=== PATIENT | female | born 1995 | race Two or more races ===

== ENCOUNTER 2023-07-25 16:42 | Emergency (ER) | payer OTHER ==
[~2023-07-25] VITALS: Ht 157.5 cm; Wt 85.1 kg
[2023-07-25] MEDS ORDERED: SODIUM CHLORIDE 0.9% 500 ML IV ONE (17:15)
[2023-07-25 17:23] VITALS: PULSE 123; RESP 19; O2SAT 94
[2023-07-25 17:25] LABS: Alanine Aminotransferase 11 U/L (7-40); Albumin 3.1 g/dL (3.2-4.8); Alkaline Phosphatase 106 U/L (46-116); Anion Gap 6 (5-15); Aspartate Aminotransferase 26 U/L (13-40); BUN/Creatinine Ratio 12.9 (10.0-20.0); Blood Urea Nitrogen 8 mg/dL (9-23); Calcium 8.5 mg/dL (8.7-10.4); Carbon Dioxide 26 mmol/L (20-30); Chloride 108 mmol/L (98-107); Glucose 89 mg/dL (74-106); Potassium 4.2 mmol/L (3.5-5.1); Sodium 140 mmol/L (136-145)
[2023-07-25 17:26] LABS: Bilirubin, Total 0.2 mg/dL (0.2-1.0); Total Protein 5.2 g/dL (5.7-8.2)
[2023-07-25 17:31] LABS: Basophils # (auto) 0 10 ^3/uL (0-0.2); Basophils % (auto) 0.3 % (0.0-2.0); Eosinophils # (auto) 0.3 10 ^3/uL (0-0.8); Hematocrit 29.6 % (36.0-46.0); Hemoglobin 9.7 g/dL (12.2-16.2); Lymphocytes # (auto) 1.9 10 ^3/uL (0.4-5.4); Lymphocytes % (auto) 14.8 % (10.0-50.0); Mean Corpuscular Hemoglobin 30.6 pg (28.0-32.0); Mean Corpuscular Hgb Conc. 32.9 g/dL (32.0-36.0); Mean Corpuscular Volume 93.1 fL (80.0-100.0); Monocytes # (auto) 0.5 10 ^3/uL (0-1.3); Monocytes % (auto) 4.2 % (0.0-12.0); Neutrophils # (auto) 10.1 10 ^3/uL (1.6-8.6); Neutrophils % (auto) 78.7 % (37.0-80.0); Red Blood Cells 3.18 10^6/uL (4.0-5.20); White Blood Cell 12.9 10^3/uL (4.4-10.8)
[2023-07-25 17:45] LABS: INR 0.92 (0.9-1.15); Partial Thromboplastin Time 36.5 SEC (24.5-34.5); Prothrombin Time 9.7 sec (9.3-11.8)
[2023-07-25] MEDS ORDERED: PHYTONADIONE (VIT K)10 MG/ML 1ML VIAL SUBCUT ONE (18:00)
[2023-07-25] MEDS ORDERED: METHYLERGONOVINE MALEATE 0.2 MG/ML AMP IM STA (18:59)
[2023-07-25] MEDS ORDERED: NS/OXYTOCIN 20UNITS 1,000 ML IV SCH (19:00)
[2023-07-25 19:37] VITALS: PULSE 117; RESP 20; O2SAT 99
[2023-07-25] MEDS ORDERED: CARBOPROST TROMETHAMINE 250 MCG/1ML VIAL IM ONE ×2 (20:15→22:15)
[2023-07-25] MEDS ORDERED: NS/OXYTOCIN 20UNITS 1,000 ML IV ONE (20:30)
[2023-07-25] MEDS ORDERED: miSOPROStol 100 mcg TAB SL PRN (20:45)
[2023-07-25] MEDS ORDERED: miSOPROStol 100 mcg TAB PR PRN (20:45)
[2023-07-25] MEDS ORDERED: TRANEXAMIC ACID 1,000 MG in SODIUM CHL 0.9% 100 ML IV ONE (20:45)
[2023-07-25 21:11] LABS: Hematocrit 26.8 % (36.0-46.0)
[2023-07-25 21:42] LABS: INR 0.96 (0.9-1.15); Partial Thromboplastin Time 35.5 SEC (24.5-34.5); Prothrombin Time 10.1 sec (9.3-11.8)
[2023-07-25 21:50] VITALS: BP 126/76; PULSE 118; RESP 19; TEMP 98.6; O2SAT 98
== END 2023-07-25 22:00 | disposition short-term general hospital (02) ==
LOC: EDBD 16:42 → ER 16:42
DX: N93.9 Abnormal uterine and vaginal bleeding, unspecified (principal); D64.9 Anemia, unspecified; Z98.890 Other specified postprocedural states
CPT/HCPCS: 36415; 36430; 76856; 80053; 85014; 85018; 85025; 85384; 85610; 85730; 86850; 86900; 86901; 96360; 96372; 99291; J2210; J7040; P9016; P9017; 86922

== ENCOUNTER 2024-09-20 21:57 | Emergency (ER) | payer OTHER ==
[~2024-09-20] VITALS: Ht 157.5 cm; Wt 65.9 kg
[2024-09-20 22:33] LABS: Basophils # (auto) 0 10 ^3/uL (0-0.2); Basophils % (auto) 0.2 % (0.0-2.0); Eosinophils # (auto) 0.1 10 ^3/uL (0-0.8); Eosinophils % (auto) 0.5 % (0.0-7.0); Hemoglobin 9.9 g/dL (12.2-16.2); Lymphocytes # (auto) 1.7 10 ^3/uL (0.4-5.4); Lymphocytes % (auto) 11.1 % (10.0-50.0); Mean Corpuscular Hgb Conc. 34.3 g/dL (32.0-36.0); Mean Corpuscular Volume 93.4 fL (80.0-100.0); Monocytes # (auto) 0.6 10 ^3/uL (0-1.3); Monocytes % (auto) 4.3 % (0.0-12.0); Neutrophils # (auto) 12.7 10 ^3/uL (1.6-8.6); Neutrophils % (auto) 83.9 % (37.0-80.0); Platelet Count (auto) 185 10^3/uL (140-450); Red Cell Distribution Width 12.4 % (11.8-14.3); White Blood Cell 15.2 10^3/uL (4.4-10.8)
[2024-09-20 22:40] VITALS: PULSE 81; RESP 23; O2SAT 100
[2024-09-20] MEDS: SODIUM CHLORIDE 0.9% 1,000 ML IVB ONE (22:44)
[2024-09-20 22:50] LABS: Alanine Aminotransferase 19 U/L (7-40); Albumin 3.7 g/dL (3.2-4.8); Alkaline Phosphatase 59 U/L (46-116); Anion Gap 8 (5-15); Aspartate Aminotransferase 15 U/L (13-40); BUN/Creatinine Ratio 20.5 (10.0-20.0); Bilirubin, Total 0.2 mg/dL (0.2-1.0); Blood Urea Nitrogen 16 mg/dL (9-23); Calcium 9.2 mg/dL (8.7-10.4); Carbon Dioxide 25 mmol/L (20-31); Chloride 107 mmol/L (98-107); Glucose 146 mg/dL (74-106); Potassium 3.6 mmol/L (3.5-5.1); Sodium 140 mmol/L (136-145)
[2024-09-20 22:51] LABS: Total Protein 5.8 g/dL (5.7-8.2)
[2024-09-21] MEDS: SODIUM CHLORIDE 0.9% 1,000 ML IV ONE (00:21)
[2024-09-21 00:37] LABS: Hematocrit 23.7 % (36.0-46.0); Hemoglobin 7.9 g/dL (12.2-16.2)
--- NOTE | 2024-09-21 01:13 | DVH ---
OBSTETRIC ULTRASOUND PRIOR TO 14 WEEKS CLINICAL INDICATION: vag bleed TECHNIQUE: Multiple grayscale ultrasound images were obtained of the pelvis via transabdominal and tr ansvaginal approach for obstetric evaluation. Limited color Doppler and spectral Doppler acquisitions were also obtained. COMPARISON: None FINDINGS: Uterus: 11.8 x 4.5 x 5.0 cm. No intrauterine gestational sac . There is an intrauterine gestational s ac measuring 1.69 cm in the lower uterine segment. No pole or yolk sac is seen Heterogeneous, thickened endometrium with internal vascularity Right adnexa: right ovary 3.1 x 1.8 x 1.4 cm. Normal arterial blood flow in the ovary. No right adnex al mass seen. Left adnexa: left ovary is not visualized. No left adnexal mass seen. Other: None IMPRESSION: 1. Intrauterine gestational sac in the lower uterine segment. No yolk sac or pole. Question if this is an active miscarriage. Close follow-up ultrasound recommended if clinically indicated 2. Heterogeneous thickened endometrium with vascularity which could be related to blood products, pos sibly retained products of conception. This could also be evaluated on follow-up. 3. Normal right ovary. 4. Left ovary not visualized.
[2024-09-21] MEDS: miSOPROStol 50 MCG per PRE-CUT 1/2 TAB VG STA (01:24)
[2024-09-21 01:39] LABS: Urine Bacteria None Seen /hpf (None Seen)
[2024-09-21] MEDS: LACT. RINGERS/OXYTOCIN 20UNITS 1,000 ML IV ONE (01:47)
--- NOTE | 2024-09-21 01:52 | ED.PDOC ---
[employer] HPI Comments 30-year-old female complaining of vaginal bleeding with cramping which two weeks ago. 09/06. States it started off his initial small brown spotting. She followed up with her OBGYN one week ago. They stated they were going to do serial beta-hCGs. States it has been trending down. Initially was [id number] last one drawn three days ago was [id number]. She did have ultrasound done and was told that he was no pole no yolk sac. They did tell her no ectopic . Patient states today she had more significant blood clot pass in heavy bleeding. States she has been having mild cramping. Patient reports being . 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 Family History Family History: Reviewed,noncontributory to illness Social History Smoker: Non-Smoker Alcohol: Denies ETOH Use Drugs: Denies Drug Use Lives In: Home Constitutional: denies: chills, diaphoresis, fatigue, fever, malaise, sweats, weakness, others EENTM: denies: blurred vision, double vision, ear bleeding, ear discharge, ear drainage, ear pain, ear ringing, eye pain, eye redness, hearing loss, mouth pain, mouth swelling, nasal discharge, nose bleeding, nose congestion, nose pain, photophobia, tearing, throat pain, throat swelling, voice changes, others Respiratory: denies: cough, hemoptysis, orthopnea, SOB at rest, shortness of breath, SOB with excertion, stridor, wheezing, others Cardiovascular: denies: chest pain, dizzy spells, diaphoresis, Dyspnea on exertion, edema, irregular heart beat, left arm pain, lightheadedness, palpitations, PND, syncope, others Gastrointestinal: reports: abdominal pain; denies: abdomen distended, blood streaked bowels, constipated, diarrhea, dysphagia, difficulty swallowing, hematemesis, melena, nausea, poor appetite, poor fluid intake, rectal bleeding, rectal pain, vomiting, others Genitourinary: reports: abnormal vagina bleeding; denies: burning, dyspareunia, dysuria, flank pain, frequency, hematuria, incontinence, pain, , vagina discharge, urgency, others Neurological: denies: dizziness, fainting, headache, left sided numbness, left sided weakness, numbness, paresthesia, pre-existing deficit, right sided numbness, right sided weakness, seizure, speech problems, tingling, tremors, weakness, others Musculoskeletal: denies: back pain, gout, joint pain, joint swelling, muscle pain, muscle stiffness, neck pain, others Integumetry: denies: bruises, change in color, change in hair/nails, dryness, laceration, lesions, lumps, rash, wounds, others Allergic/Immunocompromised: denies: Difficulty Healing, Frequent Infections, Hives, Itching, others Hematologic/Lymphatic: denies: anemia, blood clots, easy bleeding, easy bruising, swollen glands, others Physical Exam General Appearance: Moderate Distress, Normal HEENT: Normal ENT Inspection, Pharynx Normal, TMs Normal Neck: Full Range of Motion, Non-Tender, Normal, Normal Inspection Respiratory: Chest Non-Tender, Lungs Clear, No Accessory Muscle Use, No Respiratory Distress, Normal Breath Sounds Cardiovascular: No Edema, No JVD, No Murmur, No Gallop, Normal Peripheral Pulses, Regular Rate/Rhythm Breast Exam: Deferred Gastrointestinal: No Organomegaly, Non Tender, No Pulsatile Mass, Normal Bowel Sounds, Soft Genitalia: Deferred Pelvic: Deferred Rectal: Deferred Extremities: No calf tenderness, Normal capillary refill, Normal inspection, Normal range of motion, Non-tender, No pedal edema Musculoskeletal : Apperance: Normal Neurologic: Alert, grinder watch parts II-XII nml as Tested, No Motor Deficits, Normal Affect, Normal Mood, No Sensory Deficits Cerebellar Function: Normal Reflexes: Normal Skin: Cyanosis, Diaphoresis, Warm Lymphatic: No Adenopathy Was a procedure done? 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) Vaginal Bleeding: - Complete, - Incomplete, - Inevitable, - Missed, - Threatened, Ectopic X-Ray, Labs, Meds, VS Vital Signs Date Time Temp Pulse Resp B/P (MAP) Pulse Ox O2 Delivery O2 Flow Rate FiO2 09/21/24 00:50 82 16 101/52 (68) 100 09/20/24 22:40 81 23 100 Room Air* 0 21 09/20/24 22:40 98.7 81 23 108/52 (70) 100 98.7 09/20/24 22:15 98.0 78 18 104/66 (79) 98 Lab Test 09/21/24 01:38 09/21/24 00:30 09/20/24 22:20 Range/Units Urine Color Pending Urine Clarity Pending Urine pH Pending Urine Specific [place] Pending Urine Protein Pending Urine Ketones Pending Urine Blood Pending Urine Nitrite Pending Urine Bilirubin Pending Urine Urobilinogen Pending Urine Leukocyte Esterase Pending Urine RBC Pending Urine WBC Pending Urine Squamous Epithelial Cells Pending Urine Bacteria Pending Urine Glucose Pending Hemoglobin 7.9 #L 9.9 L 12.2-16.2 g/dL Hematocrit 23.7 #L 29.0 L 36.0-46.0 % White Blood Count 15.2 H 4.4-10.8 10^3/uL Red Blood Count 3.10 L 4.0-5.20 10^6/uL Mean Corpuscular Volume 93.4 80.0-100.0 fL Mean Corpuscular Hemoglobin 32.0 28.0-32.0 pg Mean Corpuscular Hemoglobin Concent 34.3 32.0-36.0 g/dL Red Cell Distribution Width 12.4 11.8-14.3 % Platelet Count 185 140-450 10^3/uL Mean Platelet Volume 10.2 6.9-10.8 fL Neutrophils (%) (Auto) 83.9 H 37.0-80.0 % Lymphocytes (%) (Auto) 11.1 10.0-50.0 % Monocytes (%) (Auto) 4.3 0.0-12.0 % Eosinophils (%) (Auto) 0.5 0.0-7.0 % Basophils (%) (Auto) 0.2 0.0-2.0 % Neutrophils # (Auto) 12.7 H 1.6-8.6 10 ^3/uL Lymphocytes # (Auto) 1.7 0.4-5.4 10 ^3/uL Monocytes # (Auto) 0.6 0-1.3 10 ^3/uL Eosinophils # (Auto) 0.1 0-0.8 10 ^3/uL Basophils # (Auto) 0 0-0.2 10 ^3/uL Nucleated Red Blood Cells 0.0 % Prothrombin Time Pending Prothrombin Time INR Pending Sodium Level 140 136-145 mmol/L Potassium Level 3.6 3.5-5.1 mmol/L Chloride Level 107 98-107 mmol/L Carbon Dioxide Level 25 20-31 mmol/L Anion Gap 8 5-15 Blood Urea Nitrogen 16 9-23 mg/dL Creatinine 0.78 0.550-1.02 mg/dL Glomerular Filtration Rate Calc 106 >90 mL/min BUN/Creatinine Ratio 20.5 H 10.0-20.0 Serum Glucose 146 H 74-106 mg/dL Calcium Level 9.2 8.7-10.4 mg/dL Total Bilirubin 0.2 0.2-1.0 mg/dL Aspartate Amino Transferase (AST) 15 13-40 U/L Alanine Aminotransferase (ALT) 19 7-40 U/L Alkaline Phosphatase 59 46-116 U/L Total Protein 5.8 5.7-8.2 g/dL Albumin 3.7 3.2-4.8 g/dL Beta HCG, Quantitative 3599.2 H 1.5-4.2 mIU/mL Current Medications Medications (Trade) Dose Ordered Sig/Yamilka Route Start Time Stop Time Status Last Admin Sodium Chloride 1,000 ml @ 1,000 mls/hr Q1H ONCE IVB 09/20/24 22:15 09/20/24 23:14 DC 09/20/24 22:44 Sodium Chloride 1,000 ml @ 1,000 mls/hr Q1H ONCE IV 09/21/24 00:15 09/21/24 01:14 DC 09/21/24 00:21 X-Ray, Labs, Meds, VS Comment Spoke with doctor Destiney JONES on-call due to the shift and hemoglobin, Dr. Cabello recommends : Transfused 2 units emergency blood Cytotec 800 mcg vaginally LR plus 20 units oxytocin at the rate of 115 hour NPO Time of 1ST Reevaluation: 01:51 Reevaluation 1ST: Unchanged Patient Education/Counseling: Diagnosis, Treatment Family Education/Counseling: Diagnosis, Treatment Departure 1 Departure Time of Disposition: 01:49 Impression: Primary Impression: Severe anemia Additional Impressions: Incomplete miscarriage Retained products of conception Blood loss anemia Disposition: ADMITTED INPATIENT Condition: Unstable Critical Care Note Critical Care Time?: No Stability Stability form required: No Heart Score Heart Score: Heart Score Response (Comments) Value History N/A 0 EKG N/A 0 Age N/A 0 Risk Factors N/A 0 Troponin N/A 0 Total 0 NAYAN VERNON Sep 21, 2024 01:52
[2024-09-21 01:53] LABS: INR 1.05 (0.9-1.15); Prothrombin Time 11.1 sec (9.3-11.8)
[2024-09-21 02:13] LABS: Urine Blood 3+ /uL (Negative); Urine Clarity Ex.Turbid (Clear); Urine Color Light-Red (Yellow); Urine Protein, UAD 2+ (Negative); Urine Specific Gravity 1.013 (1.001-1.035); Urine Urobilinogen Normal (Negative); Urine WBC 41 /hpf (0 - 5); Urine pH 6.5 (5.0-9.0)
[2024-09-21] MEDS: miSOPROStol 100 mcg TAB ONE (02:35)
[2024-09-21] MEDS: HYDROcodone-ACET 5/325MG TAB PO ONE (03:50)
[2024-09-21] MEDS ORDERED: NITROGLYCERIN 0.4 MG SL TAB SL PRN (04:15)
[2024-09-21] MEDS ORDERED: ONDANSETRON HCL 4 MG/2 ML VIAL IV PRN (04:15)
[2024-09-21] MEDS ORDERED: MORPHINE SULFATE INJ 2 MG/ml SYRG IV PRN ×2 (04:15)
[2024-09-21] MEDS: cefTRIAXone 1GM/50ML D5W 50 ML IV ONE (06:20)
[2024-09-21 07:30] VITALS: PULSE 84; RESP 20; O2SAT 100
[2024-09-21 07:47] LABS: Hematocrit 37.6 % (36.0-46.0); Hemoglobin 12.9 g/dL (12.2-16.2)
[2024-09-21 08:00] VITALS: TEMP 98.6
--- NOTE | 2024-09-21 08:58 | DVHINCON2 ---
DATE OF CONSULTATION: 09/20/2024 REASON FOR CONSULTATION: Incomplete vaginal bleeding. HISTORY OF PRESENT ILLNESS: The patient is a 29-year-old 6, para 1-0-4-1, who presented to emergency room last on 09/20/2024 at 2200. According to Emergency Room Personnel, the patient was having heavy bleeding. Her beta hCG was 20,000, which went down to 3500 on presentation and her hemoglobin was 9.7, which went down to 7.7. I was consulted at 1:00 a.m. I immediately ordered a blood transfusion and according to the PA, the patient was not bleeding anymore. She had heavy bleeding and then stopped. Pitocin was started. Blood transfusion was given followed by concurrently with Pitocin IV and Cytotec 800 mcg per vagina for small retained POC noted. According to the patient, the patient was followed by [facility] for this conservatively; however, the patient has been bleeding heavy and her hemoglobin went down to 7 based on her heavy bleeding prior to presentation. I evaluated the patient. The patient's vital signs were completely normal. She was not tachycardic. Urine output was good. The patient was consulted regarding management. I offered dilatation and curettage. Also reviewed option of Cytotec and expectant management. The patient has had 3 miscarriages and is worried about undergoing D and C. Because of her history, she does not necessarily want to get exposed to surgery at the time of my evaluation. The patient was not bleeding at all. Did not have any complaints of abdominal pain and wanted to proceed with conservative management. Follow up beta hCG and ultrasound in 1 day. Risks, complication, alternative discussed with the patient. All questions answered. The patient's questions answered to her full understanding and satisfaction. PAST MEDICAL HISTORY: None. PAST SURGICAL HISTORY: Ectopic , D and C. SOCIAL HISTORY: None. FAMILY HISTORY: None. OBSTETRIC AND GYNECOLOGIC HISTORY: One normal vaginal delivery, 3 miscarriages, 1 ectopic . ALLERGIES: No known drug allergies. REVIEW OF SYSTEMS: Consistent with HPI. CONSTITUTIONAL: No fevers, chills, or fatigue. CARDIOVASCULAR: No palpitations or chest pain. RESPIRATORY: No shortness of breath or hemoptysis. GASTROINTESTINAL: No abdominal pain, constipation, or diarrhea. GENITOURINARY: No vaginal bleeding. Currently, scant spotting. No dysuria, no frequency. NEUROLOGICAL: No dizziness, incoordination. PSYCHIATRIC: No depression or anxiety. PHYSICAL EXAMINATION: VITAL SIGNS: Stable, afebrile. Blood pressure 110/70, pulse of 70. HEENT: Within normal limits. CARDIOVASCULAR: Regular rate and rhythm. LUNGS: Clear to auscultation. BREASTS: Symmetrical. No masses. ABDOMEN: Soft, nontender. PELVIC: External genitalia within normal limits. No active bleeding noted. Vagina normal cervix closed. Uterus 8 weeks' size. Adnexa nonpalpable. No blood on the glove noted. EXTREMITIES: No clubbing, cyanosis, or edema. IMPRESSION: * Status post spontaneous AB. * Anemia, received blood transfusion. RECOMMENDATION: The patient was fully informed of risks, complication. The patient was offered D and C. She wants to have expectant management. I spoke to Dr. Wyman, the ER physician and explained to him the course of treatment. I also informed him that I was on the phone with Emergency Room from 1:00 a.m. to 5:00 a.m., managing this patient. The patient is completely stable. I have offered her D and C, but the patient refuse it. Dr. Wyman wants the patient to follow up with [place] today. He even spoke to the patient regarding transfer, but the patient appears to be very compliant and wants to drive herself to [place]. Thank you very much for this consultation. DO MAURA Wheeler TID: [id number] RECEIPT: [id number]
[2024-09-21] MEDS ORDERED: cefTRIAXone 1GM/50ML D5W 50 ML IV SCH (09:00)
[2024-09-21 09:04] VITALS: BP 119/62; PULSE 78; RESP 17; O2SAT 100
== END 2024-09-21 09:14 | disposition home or self-care (01) ==
LOC: EDUNIT# 21:57 → ER 21:57 → EDBD 21:57 → ER 09-21 09:14
DX: O03.4 Incomplete spontaneous abortion without complication (principal); R10.2 Pelvic and perineal pain; O26.891 Other specified pregnancy related conditions, first trimester; D50.0 Iron deficiency anemia secondary to blood loss (chronic); O72.2 Delayed and secondary postpartum hemorrhage; Z3A.00 Weeks of gestation of pregnancy not specified; Z88.1 Allergy status to other antibiotic agents; Z98.890 Other specified postprocedural states
CPT/HCPCS: 36415; 76801; 76817; 80053; 81001; 84702; 85014; 85018; 85025; 85610; 86850; 86870; 86880; 86900; 86901; 86906; 86920; 86971; 96361; 96365; 96366; 96368; 99285; J0696; J2590; J7030; P9016; 86922